=== PATIENT | female | born 1990 | race Caucasian/White ===

== ENCOUNTER 2025-09-27 16:50 | Emergency (ER) | payer OTHER ==
[~2025-09-27] VITALS: Ht 167.6 cm; Wt 104.3 kg
[2025-09-27] MEDS ORDERED: AMOX-CLAV 875-1 EACH PO (17:25)
[2025-09-27] MEDS ORDERED: Amoxicillin/Clavulanate Pota 875 MG TAB PO ONE (17:25)
== END 2025-09-27 17:31 | disposition home or self-care (01) ==
LOC: ED 16:50
DX: J02.0 Streptococcal pharyngitis (principal); Z88.2 Allergy status to sulfonamides